=== PATIENT | male | born 1960 ===

== ENCOUNTER 2021-05-12 07:03 | Day surgery (SDC) | payer OTHER ==
[~2021-05-12 07:03] MED LIST: TOPROL XL25 MG
== END 2021-05-12 14:45 | disposition home or self-care (01) ==
LOC: EDBD 07:03 → AMB-ENDOS 07:03
PROVIDERS: ATTEND Colon & Rectal Surgery
DX: D12.7 Benign neoplasm of rectosigmoid junction (principal); Z86.010 Personal history of colon polyps; K64.0 First degree hemorrhoids; I10 Essential (primary) hypertension